=== PATIENT | female | born 1995 | race Caucasian/White ===

== ENCOUNTER 2018-01-19 15:30 | Emergency (ER) | payer OTHER ==
[~2018-01-19] VITALS: Ht 162.6 cm; Wt 117.9 kg
[~2018-01-19 15:30] MED LIST: ANXIETY; BACTRIM DS TAB1 EACH PO; BENTYL 20 MG TA20 M1 PO; BENTYL20 MG PO; CEFDINIR300 MG PO; CIPRO500 M1 PO; CIPRO500 MG PO; CIPROFLOXACIN500 M1 PO; CIPROFLOXACIN500 M3 PO; CORTISPORIN OTI10 M2 OT; DARVOCET-N 1001 EACH PO; FLEXERIL PO; FLOMAX PO; FLOMAX0.4 MG PO; HYDROCODON-ACE1 EA11 PO; HYDROCODON-ACE1 EAC8 PO; HYDROCODONE-AP1 EAC6 PO; HYDROCODONE-APA1 TA1 PO; HYOMAX-DT0.375 MG; IBUPROFEN 800800 M1 PO; LEVSIN0.125 MG PO; MIRALAX255 GM PO; NEURONTIN600 MG PO; NOHOMEMEDICATIONS; NORCO 5-325 TA1 EACH PO; NORFLEX100 MG PO; ONDANSETRON ODT8 MG PO; PAXIL10 MG PO; PERCOCET 5-3251 EACH; PERCOCET 5-3251 EACH PO; PERCOCET PO; PHENAZOPYRIDIN200 M2 PO; PHENERGAN 25 MG25 M1 PO; PROMS25 WY RECTAL; PYRIDIUM200 MG PO; ROBAXIN500 MG PO; TAMSULOSIN HCL0.4 M1 PO; TAMSULOSIN HCL0.4 MG PO; TORADOL 10 MG T10 MG PO; ULTRAM 50MG TAB50 MG PO; ZOFRAN 4 MG ORAL4 M1 DIS; ZOFRAN 4 MG ORAL4 MG PO; ZOFRAN4 MG PO; ZYRTEC10 M1 PO
[2018-01-19 16:28] LABS: URINE BILIRUBIN NEGATIVE (Negative); URINE BLOOD NEGATIVE (Negative); URINE CLARITY CLEAR; URINE COLOR YELLOW; URINE GLUCOSE-RANDOM NEGATIVE (Negative); URINE KETONES NEGATIVE (Negative); URINE LEUKOCYTES NEGATIVE (Negative); URINE NITRITE NEGATIVE (Negative); URINE PROTEIN NEGATIVE (Negative); URINE UROBILINOGEN 0.2 E.U./dl (0.2-1.0)
[2018-01-19 16:58] LABS: ABSOLUTE BASOPHILS 0.1 thou/uL (0.0-0.2); ABSOLUTE EOSINOPHILS 0.1 thou/uL (0.0-0.7); ABSOLUTE LYMPHOCYTES 2.4 thou/uL (0.8-5.3); ABSOLUTE MONOCYTES 0.7 thou/uL (0.0-1.2); BASOPHILS 0.4 %; EOSINOPHILS 0.4 %; HEMATOCRIT 36.7 % (37.0-47.0); HEMOGLOBIN 11.8 gm/dL (12.0-15.0); MCH 25.5 pg (26.0-34.0); MCHC 32.2 g/dL (28.0-37.0); MONOCYTES 4.2 %; MPV 7.5 fl. (7.2-11.1); NUCLEATED RBCS 0 /100WBC; PLATELET COUNT* 477 thou/uL (150-400); RBC 4.64 mil/uL (4.20-5.00); RDW-CV 16.4 % (10.5-14.5); WBC 16.2 thou/uL (4.0-11.0)
[2018-01-19 17:07] LABS: CALCIUM 9.3 mg/dL (8.5-10.1); CREATININE 0.8 mg/dL (0.6-1.3); POTASSIUM 3.9 mmol/L (3.5-5.1)
[2018-01-19 17:20] LABS: ALBUMIN 3.9 g/dL (3.4-5.0); TOTAL BILIRUBIN 0.2 mg/dL (<0.1-1.0); TOTAL PROTEIN 8.3 g/dL (6.4-8.2)
[2018-01-19] MEDS ORDERED: NAPROSYN500 MG PO (19:55)
[2018-01-19] MEDS ORDERED: ONDANSETRON HCL4 M2 PO (19:55)
[2018-01-19] MEDS ORDERED: HYDROCODONE-AP1 EAC6 PO (19:55)
[2018-01-19 21:20] VITALS: BP 154/71
== END 2018-01-19 21:44 | disposition home or self-care (01) ==
LOC: M.ERS 15:30
PROVIDERS: Nurse Practitioner Family
DX: N83.202 Unspecified ovarian cyst, left side (principal); F41.9 Anxiety disorder, unspecified

== ENCOUNTER 2018-01-30 18:16 | Emergency (ER) | payer OTHER ==
[~2018-01-30] VITALS: Ht 162.6 cm; Wt 120.2 kg
[~2018-01-30 18:16] MED LIST changes: +NAPROSYN500 MG PO; +ONDANSETRON HCL4 M2 PO
[2018-01-30 18:33] LABS: URINE BILIRUBIN NEGATIVE (Negative); URINE BLOOD NEGATIVE (Negative); URINE CLARITY CLEAR; URINE COLOR YELLOW; URINE GLUCOSE-RANDOM NEGATIVE (Negative); URINE KETONES NEGATIVE (Negative); URINE LEUKOCYTES-REFLEX NEGATIVE (Negative); URINE NITRITE-REFLEX NEGATIVE (Negative); URINE PROTEIN NEGATIVE (Negative); URINE SPECIFIC GRAVITY 1.025 (1.005-1.030); URINE UROBILINOGEN 0.2 E.U./dl (0.2-1.0)
[2018-01-30 18:52] LABS: ABSOLUTE BASOPHILS 0.1 thou/uL (0.0-0.2); ABSOLUTE EOSINOPHILS 0.3 thou/uL (0.0-0.7); ABSOLUTE LYMPHOCYTES 3.3 thou/uL (0.8-5.3); ABSOLUTE MONOCYTES 0.8 thou/uL (0.0-1.2); ABSOLUTE NEUTROPHILS 8.7 thou/uL (1.6-8.1); BASOPHILS 0.9 %; EOSINOPHILS 2.2 %; HEMATOCRIT 36.5 % (37.0-47.0); HEMOGLOBIN 11.6 gm/dL (12.0-15.0); MCH 25.6 pg (26.0-34.0); MCHC 31.9 g/dL (28.0-37.0); MCV 80.1 fL (80.0-100.0); MONOCYTES 5.9 %; MPV 7.3 fl. (7.2-11.1); NUCLEATED RBCS 0 /100WBC; PLATELET COUNT* 443 thou/uL (150-400); RBC 4.56 mil/uL (4.20-5.00); RDW-CV 16.3 % (10.5-14.5); WBC 13.2 thou/uL (4.0-11.0)
[2018-01-30 19:00] LABS: CALCIUM 9.2 mg/dL (8.5-10.1); CREATININE 0.7 mg/dL (0.6-1.3); POTASSIUM 4.1 mmol/L (3.5-5.1)
[2018-01-30 19:05] LABS: ALBUMIN 4.1 g/dL (3.4-5.0); TOTAL BILIRUBIN 0.2 mg/dL (<0.1-1.0); TOTAL PROTEIN 7.7 g/dL (6.4-8.2)
[2018-01-30] MEDS ORDERED: NAPROSYN500 MG PO (20:39)
[2018-01-30] MEDS ORDERED: HYDROCODONE-AP1 EAC6 PO (20:39)
[2018-01-30] MEDS ORDERED: ZOFRAN ODT4 MG PO (20:39)
[2018-01-30] MEDS ORDERED: PHENERGAN 25 MG25 M1 PO (20:47)
[2018-01-30 21:11] VITALS: BP 149/92
== END 2018-01-30 21:11 | disposition home or self-care (01) ==
LOC: M.ERS 18:16
PROVIDERS: Physician Assistant
DX: R10.32 Left lower quadrant pain (principal); F41.9 Anxiety disorder, unspecified

== ENCOUNTER 2018-03-01 15:40 | Emergency (ER) | payer OTHER ==
[~2018-03-01] VITALS: Ht 162.6 cm; Wt 120.2 kg
[~2018-03-01 15:40] MED LIST changes: +ZOFRAN ODT4 MG PO
[2018-03-01 15:59] LABS: URINE BILIRUBIN NEGATIVE (Negative); URINE BLOOD 3+ (Negative); URINE CLARITY CLOUDY; URINE COLOR YELLOW; URINE GLUCOSE-RANDOM NEGATIVE (Negative); URINE KETONES TRACE (Negative); URINE LEUKOCYTES-REFLEX 1+ (Negative); URINE NITRITE-REFLEX NEGATIVE (Negative); URINE PROTEIN 2+ (Negative); URINE SPECIFIC GRAVITY 1.025 (1.005-1.030); URINE UROBILINOGEN 0.2 E.U./dl (0.2-1.0)
[2018-03-01] MEDS ORDERED: PHENAZOPYRIDIN200 M2 PO (16:02)
[2018-03-01] MEDS ORDERED: HYOSCYAMINE0.125 MG PO (16:02)
[2018-03-01 16:17] LABS: MUCUS 0-3 Light strn/LPF (None Seen); SQUAMOUS 4-10 Moderate /LPF (0-3); URINE RBC >20 Many /HPF (0-2)
[2018-03-01 16:18] LABS: BACTERIA-REFLEX 1-9 Few /HPF (None Seen); CASTS None Seen /LPF (None Seen); CRYSTALS None Seen /LPF (None Seen); URINE WBC-REFLEX 6-15 Few /HPF (0-5)
[2018-03-01 16:24] LABS: ABSOLUTE BASOPHILS 0.1 thou/uL (0.0-0.2); ABSOLUTE EOSINOPHILS 0.4 thou/uL (0.0-0.7); ABSOLUTE LYMPHOCYTES 2.8 thou/uL (0.8-5.3); ABSOLUTE MONOCYTES 0.5 thou/uL (0.0-1.2); ABSOLUTE NEUTROPHILS 8.3 thou/uL (1.6-8.1); BASOPHILS 0.7 %; EOSINOPHILS 3.7 %; HEMATOCRIT 35.1 % (37.0-47.0); HEMOGLOBIN 11.1 gm/dL (12.0-15.0); LYMPHOCYTES 23.4 %; MCH 25.1 pg (26.0-34.0); MCHC 31.7 g/dL (28.0-37.0); MCV 79.2 fL (80.0-100.0); MONOCYTES 3.9 %; MPV 7.7 fl. (7.2-11.1); NUCLEATED RBCS 0 /100WBC; PLATELET COUNT* 400 thou/uL (150-400); POLYS 68.3 %; RBC 4.43 mil/uL (4.20-5.00); RDW-CV 16.1 % (10.5-14.5); WBC 12.1 thou/uL (4.0-11.0)
[2018-03-01 16:32] LABS: CALCIUM 8.7 mg/dL (8.5-10.1); CREATININE 0.7 mg/dL (0.6-1.3); POTASSIUM 3.8 mmol/L (3.5-5.1)
[2018-03-01 16:37] LABS: ALBUMIN 3.5 g/dL (3.4-5.0); TOTAL BILIRUBIN 0.2 mg/dL (<0.1-1.0); TOTAL PROTEIN 7.4 g/dL (6.4-8.2)
[2018-03-01] MEDS ORDERED: COLACE100 MG PO (17:39)
[2018-03-01] MEDS ORDERED: NORCO 5-325 TA1 EAC1 PO (17:39)
[2018-03-01 17:49] VITALS: BP 148/88
== END 2018-03-01 17:50 | disposition home or self-care (01) ==
LOC: M.ERS 15:40
PROVIDERS: Nurse Practitioner Family
DX: T83.84XA Pain due to genitourinary prosthetic devices, implants and grafts, initial encounter (principal); K59.00 Constipation, unspecified; F41.9 Anxiety disorder, unspecified; Z87.442 Personal history of urinary calculi

== ENCOUNTER 2018-04-15 14:16 | Emergency (ER) | payer OTHER ==
[~2018-04-15] VITALS: Ht 157.5 cm; Wt 127.0 kg
[~2018-04-15 14:16] MED LIST changes: +COLACE100 MG PO; +HYOSCYAMINE0.125 MG PO; +NORCO 5-325 TA1 EAC1 PO
[2018-04-15] MEDS ORDERED: HYDROCODONE-AP1 EAC6 PO (15:36)
[2018-04-15] MEDS ORDERED: BACTRIM DS TAB1 EACH PO (15:36)
[2018-04-15] MEDS ORDERED: IBUPROFEN 600600 M1 PO (15:36)
[2018-04-15] MEDS ORDERED: BACTROBAN15 GM TOP (15:36)
[2018-04-15 15:43] VITALS: BP 150/87
== END 2018-04-15 15:43 | disposition home or self-care (01) ==
LOC: M.ERS 14:16
DX: L03.032 Cellulitis of left toe (principal); F41.9 Anxiety disorder, unspecified

== ENCOUNTER 2018-07-06 19:18 | Emergency (ER) | payer OTHER ==
[~2018-07-06] VITALS: Ht 162.6 cm; Wt 124.7 kg
[~2018-07-06 19:18] MED LIST changes: +BACTROBAN15 GM TOP; +IBUPROFEN 600600 M1 PO
[2018-07-06] MEDS ORDERED: NORCO 7.5-3251 EACH (19:32)
[2018-07-06 20:22] LABS: ABSOLUTE BASOPHILS 0.1 thou/uL (0.0-0.2); ABSOLUTE EOSINOPHILS 0.3 thou/uL (0.0-0.7); ABSOLUTE MONOCYTES 0.7 thou/uL (0.0-1.2); ABSOLUTE NEUTROPHILS 10.9 thou/uL (1.6-8.1); BASOPHILS 0.9 %; EOSINOPHILS 1.7 %; HEMATOCRIT 36.6 % (37.0-47.0); HEMOGLOBIN 11.6 gm/dL (12.0-15.0); LYMPHOCYTES 19.9 %; MCH 25.5 pg (26.0-34.0); MCHC 31.9 g/dL (28.0-37.0); MCV 80.2 fL (80.0-100.0); MONOCYTES 4.9 %; MPV 7.8 fl. (7.2-11.1); NUCLEATED RBCS 0 /100WBC; PLATELET COUNT* 429 thou/uL (150-400); POLYS 72.6 %; RBC 4.56 mil/uL (4.20-5.00)
[2018-07-06 20:22] LABS: URINE BILIRUBIN NEGATIVE (Negative); URINE BLOOD 2+ (Negative); URINE CLARITY CLEAR; URINE COLOR YELLOW; URINE GLUCOSE-RANDOM NEGATIVE (Negative); URINE KETONES NEGATIVE (Negative); URINE LEUKOCYTES-REFLEX TRACE (Negative); URINE NITRITE-REFLEX NEGATIVE (Negative); URINE PROTEIN NEGATIVE (Negative); URINE SPECIFIC GRAVITY 1.015 (1.005-1.030); URINE UROBILINOGEN 0.2 E.U./dl (0.2-1.0)
[2018-07-06 20:30] LABS: SQUAMOUS >10 Many /LPF (0-3)
[2018-07-06 20:31] LABS: CASTS None Seen /LPF (None Seen); CRYSTALS None Seen /LPF (None Seen); MUCUS None Seen strn/LPF (None Seen)
[2018-07-06 20:31] LABS: CALCIUM 8.8 mg/dL (8.5-10.1); CREATININE 0.7 mg/dL (0.6-1.3); POTASSIUM 3.6 mmol/L (3.5-5.1)
[2018-07-06 20:32] LABS: URINE WBC-REFLEX 0-5 Rare /HPF (0-5)
[2018-07-06 20:36] LABS: ALBUMIN 3.6 g/dL (3.4-5.0); TOTAL BILIRUBIN 0.2 mg/dL (<0.1-1.0); TOTAL PROTEIN 7.5 g/dL (6.4-8.2)
[2018-07-06] MEDS ORDERED: FLOMAX0.4 MG PO (21:06)
[2018-07-06] MEDS ORDERED: HYDROCODON-ACE1 EAC8 PO (22:01)
[2018-07-06 22:06] VITALS: BP 137/70
== END 2018-07-06 22:08 | disposition home or self-care (01) ==
LOC: M.ERS 19:18
PROVIDERS: Physician Assistant
DX: N20.0 Calculus of kidney (principal); R11.2 Nausea with vomiting, unspecified; F41.9 Anxiety disorder, unspecified; Z98.890 Other specified postprocedural states

== ENCOUNTER 2018-07-07 15:59 | Inpatient (IN) | payer OTHER ==
[~2018-07-07] VITALS: Ht 162.6 cm; Wt 123.5 kg
[~2018-07-07 15:59] MED LIST changes: +NORCO 7.5-3251 EACH
[2018-07-07 16:05] VITALS: BP 172/112
[2018-07-07 16:44] LABS: HEMATOCRIT 38.5 % (37.0-47.0); HEMOGLOBIN 12.1 gm/dL (12.0-15.0); MCH 25.2 pg (26.0-34.0); MCHC 31.4 g/dL (28.0-37.0); MCV 80.3 fL (80.0-100.0); MPV 7.7 fl. (7.2-11.1); NUCLEATED RBCS 0 /100WBC; PLATELET COUNT* 438 thou/uL (150-400); RDW-CV 15.8 % (10.5-14.5); WBC 20.3 thou/uL (4.0-11.0)
[2018-07-07 16:49] LABS: CALCIUM 8.6 mg/dL (8.5-10.1); POTASSIUM 3.9 mmol/L (3.5-5.1)
[2018-07-07 16:53] LABS: ALBUMIN 3.8 g/dL (3.4-5.0); TOTAL BILIRUBIN 0.4 mg/dL (<0.1-1.0); TOTAL PROTEIN 7.8 g/dL (6.4-8.2)
[2018-07-07 17:38] LABS: ABSOLUTE EOSINOPHILS 0.2 thou/uL (0.0-0.7); ABSOLUTE MONOCYTES 0.2 thou/uL (0.0-1.2); ABSOLUTE NEUTROPHILS 17.9 thou/uL (1.6-8.1)
[2018-07-07 17:40] LABS: ANISOCYTOSIS Occasional; PLATELET ESTIMATE INCREASED
[2018-07-07 18:10] VITALS: BP 117/65
[2018-07-07 18:38] VITALS: BP 151/96
--- NOTE | 2018-07-07 19:06 | NUR ---
PATIENT ADMITTED TO ROOM 106 FROM ER. ALERT AND ORIENTED. RATING RIGHT FLANK PAIN AT 7/10. PRN DILAUDID GIVEN FOR PAIN PER ORDERS. IVF RUNNING WO AT THIS TIME PER ORDERS THEN TO INFUSE AT 150MLS/HR. UP AD BOO. REG DIET AND NPO AFTER MIDNIGHT. ORIENTED TO CALL LIGHT. CALL LIGHT WITHIN REACH, WILL CONTINUE TO MONITOR.
[2018-07-08] VITALS (7 sets, daily range): BP systolic 114–151; BP diastolic 62–86
--- NOTE | 2018-07-08 05:42 | NUR ---
ASSESSMENT COMPLETE. PT SLEPT MOST OF THE NIGHT. IV PAIN MEDICATION GIVEN NEEDED. PAIN MEDICATION WERE NOT WORKING AT BEGINING OF SHIFT, DILAUDID CHANGED AND NOW PT TOLERATING PAIN. PT HAS IV FLUIDS INFUSING. DENIES N/V. PT HAS BEEN NPO SINCE MIDNIGHT. PT IS UP AD BOO. STRAINING URING. UROLOGY CONSULT. SEE ASSESSMENT AND VITALS FOR OTHER DETAILS. CALL LIGHT WITHIN REACH, WILL CONTINUE PLAN OF CARE
[2018-07-08 10:03] LABS: HEMATOCRIT 35.7 % (37.0-47.0); HEMOGLOBIN 10.8 gm/dL (12.0-15.0); MCH 24.6 pg (26.0-34.0); MCHC 30.4 g/dL (28.0-37.0); MCV 80.8 fL (80.0-100.0); MPV 7.7 fl. (7.2-11.1); RBC 4.41 mil/uL (4.20-5.00); WBC 15.3 thou/uL (4.0-11.0)
--- NOTE | 2018-07-08 18:12 | NUR ---
PATIENT RESTING IN BED. PATIENT HAD CYSTOSCOPY WITH STENT PLACEMENT THIS AFTERNOON. PATIENT HAS COMPLAINTS OF PAIN9/10, MEDICATION GIVEN. PATIENT IS TOLERATING REGULAR DIET AT THIS TIME. PATIENT IS UP AD BOO IN ROOM. PATIENT DENIES ANY NEEDS AT THIS TIME. WILL CONTINUE TO MONITOR.
[2018-07-09] VITALS: BP 128/53
--- NOTE | 2018-07-09 05:42 | NUR ---
PT AWAKE ALL NIGHT WATCHING TV. UP AD BOO TO BR TO VOID GOOD AMOUNT ORANGE URINE, BLOOD TINGED INITIALLY. RAC IVF INFUSIN PER PUMP. RECEIVING IV PAIN MED Q2 HOURS FOR CO PAIN 8-10 WITH GOOD RESULT BUT SHORT LIVED PT STATES. DOES NOT WANT TO TRY ORAL MEDS, STATES SHE TRIED THEM EARLIER AND THEY DIDNT HELP. EDUCATED ON NEED FOR ORAL MEDS TO CONTROL PAIN AT DISCHARGE. TOLERATING REGULAR DIET WITHOUT DIFFICULTY. ABLE TO USE CALL LITE AND MAKE NEEDS KNOWN.
[2018-07-09 08:00] VITALS: BP 135/79
[2018-07-09] MEDS ORDERED: PERCOCET PO (09:27)
--- NOTE | 2018-07-09 13:00 | NUR ---
MET WITH PT. SHE LIVES WITH HER MOM. SHE IS INDEPENDENT,WORKS, DRIVES. HER [employer] ON HER. NO DME/HH. SHE SHOULD HAVE NO DISCHARGE NEEDS. IS HAVING TROUBLE WITH ORAL PAIN MEDS NOT HELPING HER PAIN. NURSING AWARE.
[2018-07-09 16:54] VITALS: BP 136/79
--- NOTE | 2018-07-09 17:06 | NUR ---
SHIFT NOTE - DISCHARGE PAPERS WRITTEN FOR PT. PT TRANSITIONED TO PO PAIN MEDS. PT STILL HAVING SEVERE ABD/FLANK PAIN 9 OUT OF 10 WITH 2 PERCOCET. SPOKE WITH . ORDERS GIVEN TO ADD 2 OXY IR ALONG WITH THE PERCOCET. WILL CONT TO MONITOR.
--- NOTE | 2018-07-09 18:12 | NUR ---
PAIN REASSESSMENT AFTER PERCOCET 2 TABS AND OXY IR 2 TABS COMPLETE. PT RATING ON A PAIN SCALE AFTER THE PREVIOUS AN 8 (BEFORE MEDS WAS A 9). PT STATED "THE ONLY THING THAT BRINGS MY PAIN TO A ZERO IS IV DILAUDID". SPOKE WITH . ORDERS REC. GIVE LEVSIN AND PYRIDIUM NOW, THEN IF STILL HAVING PAIN THE GIVE B&O SUPP (SEE ORDERS). LEVSIN/PYRIDIUM GIVEN. WILL REASSESS IN 1 HOUR. PT STILL REFUSING DISCHARGE AT THIS TIME D/T PAIN CONTROL ISSUES.
[2018-07-09 20:00] VITALS: BP 133/65
[2018-07-10 04:30] VITALS: BP 142/83
--- NOTE | 2018-07-10 05:24 | NUR ---
AT START OF SHIFT PT TEARFUL, MOM AT BEDSIDE, DISCUSSING DISCHARGE AND PAIN CONTROL MEASURES. PT STATES THE ORAL MEDS ARE NOT CONTROLLING HER PAIN AND SHE CANNOT GO HOME WITH THIS MUCH PAIN, 07/12. REFUSING B&O SUPP. CALL PLACED TO UROLOGIST DR ZHENG. TORADOL ORDERED X1 DOSE AND DR STATES SHE WANTS HOSPITALIST TO MANAGE NARCOTIC PAIN MEDS IF PT REFUSING TO DISCHARGE. DR ZHANG NOTIFIED AND ORDERS RECEIVED FOR STRONGER ORAL MEDS. PT MADE AWARE OF PLAN, AGREEABLE. TORADOL IV AND OXY IR 20MG GIVEN AND PT ABLE TO SLEEP, NOT REQUESTING PAIN MED FOR 4 HOURS. OXYCODONE 20MG GIVEN PO AND PT REQUESTING ADDITIONAL PAIN MED AFTER 2 HOURS. OXY IR GIVEN ALONG WITH LEVSIN AND PYRIDIUM WHICH LASTED 2 HOURS AND PT CALLING AGAIN FOR PAIN MED. SHE STATES ORAL PAIN MEDS ALTERNATED ABLE TO BRING HER PAIN DOWN TO ABOUT A 6 FOR A PERIOD OF TIME. RAC IVF INFUSING PER PUMP. UP AD BOO IN ROOM, VOIDING WITHOUT DIFFICULTY. TOLERATING REGULAR DIET WITHOUT N/V. ANTICIPATING DISCHARGE HOME TODAY WITH PO MEDS. ABLE TO USE CALL LITE AND MAKE NEEDS KNOWN.
[2018-07-10 08:15] VITALS: BP 142/94
[2018-07-10] MEDS ORDERED: IBUPROFEN 400400 M2 PO (09:07)
[2018-07-10] MEDS ORDERED: OXYCODONE HCL10 MG PO (09:07)
[2018-07-10] MEDS ORDERED: NORCO 10-325 T1 EACH PO (09:07)
[2018-07-10 10:58] VITALS: BP 151/86
[2018-07-10 11:09] VITALS: BP 151/86
[2018-07-10] MEDS ORDERED: ONDANSETRON HCL4 M2 PO (11:13)
[2018-07-10] MEDS ORDERED: LEVSIN0.125 MG PO (11:14)
[2018-07-10] MEDS ORDERED: KEFLEX500 M1 PO (11:16)
[2018-07-10] MEDS ORDERED: PHENAZOPYRIDIN200 M2 PO (11:16)
--- NOTE | 2018-07-10 12:29 | OP ---
[address] [address] OPERATIVE REPORT Name: CAROLA PHAN Room: [address] IN [facility].#: [id number] Admission: 07/07/18 Attend Phys: Bonita Charles MD Discharge: Date of : 95 Report #: [id number] THIS REPORT FOR: //name// CC: [facility] physician/PCP Bonita Charles DATE OF SERVICE: 07/08/2018 PREOPERATIVE DIAGNOSIS: Right proximal ureteral stone. POSTOPERATIVE DIAGNOSES: Right proximal ureteral stone as well as right nephrolithiasis. PROCEDURE: Cystourethroscopy, right retrograde pyelogram, right ureteroscopy, laser lithotripsy, basket extraction of stone fragments and right ureteral stent placement (6 x 26). SURGEON: Marisa Diamond M.D. ANESTHESIA: General. ESTIMATED BLOOD LOSS: None. COMPLICATIONS: None. SPECIMEN: Stone. INDICATIONS: The patient is a 23-year-old female well known to Dr. Noyola with a long history of stones. She presents again with a 4-mm right proximal stone. Options were discussed and due to intractable pain and this being her second ER visit, she wishes to undergo intervention. Risks of procedure were discussed including but not limited to infection, bleeding, injury to the urethra, bladder, ureter, need for secondary procedures, stent pain, cardiopulmonary complications. She voiced understanding and wished to proceed. DESCRIPTION OF PROCEDURE: After informed consent was obtained, the patient was taken back to the operating suite and placed supine. After induction of general anesthesia, she was placed in dorsal lithotomy position, genitalia prepped and draped in standard fashion. Rigid cystoscopy was performed. Bladder mucosa appeared normal. There were no abnormalities. Ureteral orifices were orthotopic in position. Retrograde was performed on the right with cone tip catheter. She had a questionable very, very faint subtle filling defect in the proximal ureter. Initially, I did not see this, but she did have some very, very mild right hydronephrosis, so on closer look, this did appear to be a true defect. A sensor wire was threaded up into the kidney. [id number] [id number] OPERATIVE REPORT Name: PHANCAROLA Room: [address] IN [facility].#: [id number] Admission: 07/07/18 Attend Phys: Bonita Charles MD Discharge: Date of : 95 Report #: [id number] ureteroscope to make sure there were no distal fragments and the distal ureter was inspected and this was clear. A second wire was placed and an 09/14 ureteral access sheath was threaded along while the wires, this would only pass to the level of the mid ureter and that was left in place. Flexible scope was advanced up into the mid ureter. In the proximal ureter, there was an edematous narrowed area where the stone had likely been, but there was no stone present and I suspected it had blown back into the kidney with retrograde. This appeared to be mildly strictured, but I was able to advance the scope through. On entrance into the kidney, all calices were inspected and the stone in question was found free floating in the upper pole and appeared to be about 4 mm in length. The holmium laser fiber was used to break this up into small fragments. The rest of the calices were inspected. In the mid pole, she had a stone still attached to the underlying calices, but this was easily knocked off and this was lasered and this was probably about 2 or 3 mm. She also had a tiny stone in the lower pole that was adherent to the zenia, but that was also knocked off and too tiny to even need to be lasered. All the calices were again inspected and no other stones were seen. Any pieces that were significant were basketed with the 0 tip nitinol basket and removed. Once this was all accomplished, the kidney was again all inspected in all calices and there were no significant fragments remaining just dust-like fragments. The scope was backed out under direct vision. There was no injury from the sheath. A retrograde was again performed to delineate the collecting system for stent placement. There was no extravasation. The wire was backloaded through the cystoscope and a 6-Vietnamese x 24 cm double-J stent was threaded over the wire. This appeared to be a little short as I could not get a curled in the renal pelvis. It just kept hooking in the lower pole, so this was externalized at the meatus. Wire was rethreaded and a new 6-Vietnamese x 26-cm double-J stent was threaded over the wire. Good curl was this time seen in the renal pelvis and good curl was seen within the bladder under direct visualization. The bladder was then drained, scope was removed and procedure was concluded. A 5 mL of lidocaine jelly were placed per urethra for local anesthesia and a 60 mg B and O suppository was placed per rectum for postoperative discomfort. She was awoken, extubated and taken to recovery in satisfactory condition. She will be admitted back to the floor and potentially home tonight if her pain is controlled. Would recommend she follow up in clinic in a week for stent removal. <ELECTRONICALLY SIGNED> By: Marisa Diamond MD 07/10/18 1229 1650 [id number] Diamond MD /nt
--- NOTE | 2018-07-10 14:19 | NUR ---
PATIENT DISCHARGED FROM UNIT AT 1345. ALERT AND ORIENTED X 4. VITAL SIGNS STABLE ON ROOM AIR. IV DISCONTINUED. DENIES NAUSEA. PAIN BEING MANAGED WITH PO PAIN MEDICATION. DISCHARGE INSTRUCTIONS, MEDICATION INFORMATION, AND SCRIPTS GIVEN TO PATIENT. LEFT WITH ALL BELONGINGS. PATIENT LEFT WITH STEP DAD VIA CAR.
[2018-07-14 13:09] LABS: STONE CA OXALATE MONOHYDRATE 85 % (()); STONE CALCIUM PHOSPHATE 10 % (()); STONE COLOR Brown (()); STONE COMMENT Note: (()); STONE WEIGHT 6.3 mg (())
== END 2018-07-10 13:45 | disposition home or self-care (01) | DRG 669 ==
LOC: M.ERS 15:59 → M.TBA-ER 17:49 → M.ORTHSURG 17:49
PROVIDERS: Nurse Practitioner Family; Urology; ADMIT Internal Medicine
PROC: 0TC68ZZ Extirpation of Matter from Right Ureter, Via Natural or Artificial Opening Endoscopic (ICD-10-PCS; principal; 2018-07-10)
PROC: 0T768DZ Dilation of Right Ureter with Intraluminal Device, Via Natural or Artificial Opening Endoscopic (ICD-10-PCS; principal; 2018-07-10)
PROC: BT1D1ZZ Fluoroscopy of Right Kidney, Ureter and Bladder using Low Osmolar Contrast (ICD-10-PCS; principal; 2018-07-10)
DX: N20.2 Calculus of kidney with calculus of ureter (principal); N30.01 Acute cystitis with hematuria; F41.9 Anxiety disorder, unspecified; Z79.899 Other long term (current) drug therapy; Z87.442 Personal history of urinary calculi; Z82.49 Family history of ischemic heart disease and other diseases of the circulatory system; Z83.3 Family history of diabetes mellitus

== ENCOUNTER 2018-10-11 13:57 | Emergency (ER) | payer OTHER ==
[~2018-10-11] VITALS: Ht 162.6 cm; Wt 117.9 kg
[~2018-10-11 13:57] MED LIST changes: +IBUPROFEN 400400 M2 PO; +KEFLEX500 M1 PO; +NORCO 10-325 T1 EACH PO; +OXYCODONE HCL10 MG PO
[2018-10-11 14:27] LABS: URINE BILIRUBIN NEGATIVE (Negative); URINE BLOOD 1+ (Negative); URINE CLARITY CLEAR; URINE COLOR YELLOW; URINE GLUCOSE-RANDOM NEGATIVE (Negative); URINE KETONES NEGATIVE (Negative); URINE LEUKOCYTES-REFLEX NEGATIVE (Negative); URINE NITRITE-REFLEX NEGATIVE (Negative); URINE PROTEIN NEGATIVE (Negative); URINE SPECIFIC GRAVITY 1.025 (1.005-1.030); URINE UROBILINOGEN 0.2 E.U./dl (0.2-1.0)
[2018-10-11 14:33] LABS: SQUAMOUS 0-3 Few /LPF (0-3); URINE WBC-REFLEX 0-5 Rare /HPF (0-5)
[2018-10-11 14:34] LABS: BACTERIA-REFLEX None Seen /HPF (None Seen); CASTS None Seen /LPF (None Seen); CRYSTALS None Seen /LPF (None Seen); MUCUS None Seen strn/LPF (None Seen); URINE RBC 3-10 Few /HPF (0-2)
[2018-10-11 14:38] LABS: ABSOLUTE BASOPHILS 0.1 thou/uL (0.0-0.2); ABSOLUTE EOSINOPHILS 0.1 thou/uL (0.0-0.7); ABSOLUTE LYMPHOCYTES 2.4 thou/uL (0.8-5.3); ABSOLUTE MONOCYTES 0.8 thou/uL (0.0-1.2); ABSOLUTE NEUTROPHILS 11.1 thou/uL (1.6-8.1); BASOPHILS 0.7 %; EOSINOPHILS 0.5 %; HEMATOCRIT 37.5 % (37.0-47.0); HEMOGLOBIN 12.2 gm/dL (12.0-15.0); LYMPHOCYTES 16.4 %; MCH 25.9 pg (26.0-34.0); MCHC 32.5 g/dL (28.0-37.0); MCV 79.6 fL (80.0-100.0); MONOCYTES 5.5 %; MPV 7.6 fl. (7.2-11.1); NUCLEATED RBCS 0 /100WBC; PLATELET COUNT* 460 thou/uL (150-400); POLYS 76.9 %; RBC 4.71 mil/uL (4.20-5.00); RDW-CV 16.2 % (10.5-14.5); WBC 14.5 thou/uL (4.0-11.0)
[2018-10-11 14:52] LABS: CALCIUM 9.4 mg/dL (8.5-10.1); CREATININE 0.7 mg/dL (0.6-1.3); POTASSIUM 3.6 mmol/L (3.5-5.1)
[2018-10-11 14:57] LABS: ALBUMIN 3.8 g/dL (3.4-5.0); TOTAL BILIRUBIN 0.3 mg/dL (<0.1-1.0); TOTAL PROTEIN 7.9 g/dL (6.4-8.2)
[2018-10-11] MEDS ORDERED: ZOFRAN4 MG PO (16:15)
[2018-10-11] MEDS ORDERED: ACETAMINOPHEN-1 EAC1 PO (16:15)
[2018-10-11 16:32] VITALS: BP 138/79
== END 2018-10-11 16:33 | disposition home or self-care (01) ==
LOC: M.ERS 13:57
PROVIDERS: Nurse Practitioner Family
DX: N23 Unspecified renal colic (principal); R11.2 Nausea with vomiting, unspecified; F41.9 Anxiety disorder, unspecified; K58.9 Irritable bowel syndrome, unspecified; Z87.442 Personal history of urinary calculi; Z98.890 Other specified postprocedural states

== ENCOUNTER 2018-10-30 18:01 | Inpatient (IN) | payer OTHER ==
[~2018-10-30] VITALS: Ht 162.6 cm; Wt 122.5 kg
--- NOTE | ~2018-10-30 | OP ---
[address] [address] OPERATIVE REPORT Name: CAROLA PHAN Room: [address] IN .R.#: [id number] Admission: 10/30/18 Attend Phys: Bill Medeiros, Discharge: Date of : 95 Report #: [id number] THIS REPORT FOR: //name// CC: Jaysno Medeiros SURGEON: Anthony Godoy MD PREOPERATIVE DIAGNOSIS: Left ureteral stone with recalcitrant pain. POSTOPERATIVE DIAGNOSIS: Left ureteral stone with recalcitrant pain. PROCEDURE: Panendoscopy and cystoscopy, left retrograde pyelogram, left ureteroscopy, holmium laser of stone, extraction of stone and double-J stent. COMPLICATIONS: No complications. INDICATIONS: This is a 23-year-old white female with multiple stone procedures in the past that she presents now with severe left flank pain. Cannot get comfortable except with IV Dilaudid. She was given options, wished to have ureteroscopy. She understands the risks of bleeding, infection, another procedure, cardiovascular and pulmonary complications and wished to proceed. DESCRIPTION OF PROCEDURE: Informed consent was obtained. The patient was prepped and draped in dorsal lithotomy position and given preoperative antibiotics. Cystoscopy was carried out. No abnormalities seen in the bladder. Left retrograde pyelogram was performed showing a tight stone at the proximal ureter. It was difficult to get contrast by, but I did get a little contrast by which kind of pushed the stone in retrograde fashion. A sensor wire and ZIPwire were used as safety wires. A ureteral 09/14 ureteral access sheath was placed very easily and then the ureteroscopy was carried out and there was one stone that was only about 2 mm, another stone that was about 6 mm and I was able to break both stones up into tiny little fragments, extracted the bulk of all the biggest fragments. There were some small dust-like particles that were still left too small to grasp in the wire basket. A 4.8 x 28 stent was then placed showing good curl in the kidney and good curl in the bladder. The patient tolerated this well and was taken to recovery room in good condition. It had been noted the ureter was inspected on the way out with ureteroscope. No evidence of any trauma to the ureter. By: 1300 [id number] Godoy MD /lenny
[~2018-10-30 18:01] MED LIST changes: +ACETAMINOPHEN-1 EAC1 PO
[2018-10-30 18:09] VITALS: BP 152/102
[2018-10-30 18:35] LABS: ABSOLUTE BASOPHILS 0.1 thou/uL (0.0-0.2); ABSOLUTE EOSINOPHILS 0.1 thou/uL (0.0-0.7); ABSOLUTE LYMPHOCYTES 2.9 thou/uL (0.8-5.3); ABSOLUTE MONOCYTES 0.7 thou/uL (0.0-1.2); ABSOLUTE NEUTROPHILS 10.7 thou/uL (1.6-8.1); BASOPHILS 0.5 %; EOSINOPHILS 0.8 %; HEMATOCRIT 36.6 % (37.0-47.0); HEMOGLOBIN 11.9 gm/dL (12.0-15.0); LYMPHOCYTES 19.9 %; MCH 26.2 pg (26.0-34.0); MCHC 32.5 g/dL (28.0-37.0); MCV 80.8 fL (80.0-100.0); MONOCYTES 4.8 %; MPV 7.4 fl. (7.2-11.1); NUCLEATED RBCS 0 /100WBC; PLATELET COUNT* 435 thou/uL (150-400); RBC 4.53 mil/uL (4.20-5.00); RDW-CV 15.7 % (10.5-14.5); WBC 14.4 thou/uL (4.0-11.0)
[2018-10-30 18:45] LABS: CALCIUM 8.6 mg/dL (8.5-10.1); POTASSIUM 3.8 mmol/L (3.5-5.1)
[2018-10-30 18:48] LABS: ALBUMIN 4.1 g/dL (3.4-5.0); TOTAL BILIRUBIN 0.4 mg/dL (<0.1-1.0); TOTAL PROTEIN 7.4 g/dL (6.4-8.2)
[2018-10-30 20:02] LABS: URINE BILIRUBIN NEGATIVE (Negative); URINE BLOOD NEGATIVE (Negative); URINE CLARITY CLEAR; URINE COLOR YELLOW; URINE GLUCOSE-RANDOM NEGATIVE (Negative); URINE KETONES NEGATIVE (Negative); URINE LEUKOCYTES-REFLEX NEGATIVE (Negative); URINE NITRITE-REFLEX NEGATIVE (Negative); URINE PROTEIN NEGATIVE (Negative); URINE SPECIFIC GRAVITY >= 1.030 (1.005-1.030); URINE UROBILINOGEN 0.2 E.U./dl (0.2-1.0)
[2018-10-30 21:50] VITALS: BP 137/80
[2018-10-30 21:55] VITALS: BP 142/92
[2018-10-31 07:55] VITALS: BP 144/81
[2018-10-31 16:00] VITALS: BP 113/80
[2018-11-01 04:00] VITALS: BP 105/61
[2018-11-01 07:55] VITALS: BP 123/69
[2018-11-01] MEDS ORDERED: PERCOCET PO (12:48)
[2018-11-01 12:50] VITALS: BP 123/69
[2018-11-01] MEDS ORDERED: LEVSIN0.125 MG PO (12:50)
== END 2018-11-01 13:40 | disposition home or self-care (01) | DRG 661 ==
LOC: M.ERS 18:01 → M.3W 21:06 → M.TBA-ER 21:06 → M.3W 22:08
PROVIDERS: Physician Assistant; ADMIT Family Medicine
PROC: 0TC78ZZ Extirpation of Matter from Left Ureter, Via Natural or Artificial Opening Endoscopic (ICD-10-PCS; principal; 2018-10-31)
PROC: 0T778DZ Dilation of Left Ureter with Intraluminal Device, Via Natural or Artificial Opening Endoscopic (ICD-10-PCS; principal; 2018-10-31)
PROC: BT1F1ZZ Fluoroscopy of Left Kidney, Ureter and Bladder using Low Osmolar Contrast (ICD-10-PCS; principal; 2018-10-31)
DX: N20.1 Calculus of ureter (principal); K58.9 Irritable bowel syndrome, unspecified; F41.9 Anxiety disorder, unspecified; Z87.442 Personal history of urinary calculi; Z82.49 Family history of ischemic heart disease and other diseases of the circulatory system; Z83.3 Family history of diabetes mellitus

== ENCOUNTER 2019-03-27 16:10 | Emergency (ER) | payer OTHER ==
[~2019-03-27] VITALS: Ht 162.6 cm; Wt 122.5 kg
[2019-03-27 16:17] VITALS: BP 163/94
[2019-03-27] MEDS ORDERED: FLEXERIL PO (16:19)
[2019-03-27] MEDS ORDERED: NORCO 5-325 TA1 EACH PO (16:31)
[2019-03-27] MEDS ORDERED: IBUPROFEN 800800 M1 PO (16:32)
[2019-03-27] MEDS ORDERED: ZANAFLEX4 MG PO (16:32)
== END 2019-03-27 16:40 | disposition home or self-care (01) ==
LOC: M.ERS 16:10
DX: M54.6 Pain in thoracic spine (principal); G89.29 Other chronic pain; R00.0 Tachycardia, unspecified; K58.9 Irritable bowel syndrome, unspecified; F41.9 Anxiety disorder, unspecified; E66.9 Obesity, unspecified; Z68.42 Body mass index [BMI] 45.0-49.9, adult; Z87.442 Personal history of urinary calculi; Z90.89 Acquired absence of other organs

== ENCOUNTER 2019-05-26 15:48 | Emergency (ER) | payer OTHER ==
[~2019-05-26] VITALS: Ht 162.6 cm; Wt 122.5 kg
[~2019-05-26 15:48] MED LIST changes: +ZANAFLEX4 MG PO
[2019-05-26] MEDS ORDERED: NORCO 5-325 TA1 EAC1 PO (16:46)
[2019-05-26 16:57] VITALS: BP 166/88
== END 2019-05-26 16:59 | disposition home or self-care (01) ==
LOC: M.ERS 15:48
DX: M54.6 Pain in thoracic spine (principal); M25.511 Pain in right shoulder; F10.10 Alcohol abuse, uncomplicated; F41.9 Anxiety disorder, unspecified; K58.9 Irritable bowel syndrome, unspecified; Z90.89 Acquired absence of other organs; Z87.442 Personal history of urinary calculi; Z79.899 Other long term (current) drug therapy

== ENCOUNTER 2019-11-27 08:07 | Inpatient (IN) | payer OTHER ==
[~2019-11-27] VITALS: Ht 162.6 cm; Wt 115.7 kg
[2019-11-27 08:17] VITALS: BP 139/89
[2019-11-27 08:27] LABS: URINE BILIRUBIN NEGATIVE (Negative); URINE BLOOD 3+ (Negative); URINE CLARITY CLEAR; URINE COLOR STRAW; URINE GLUCOSE-RANDOM NEGATIVE (Negative); URINE KETONES NEGATIVE (Negative); URINE LEUKOCYTES-REFLEX NEGATIVE (Negative); URINE NITRITE-REFLEX NEGATIVE (Negative); URINE PROTEIN NEGATIVE (Negative); URINE UROBILINOGEN 0.2 E.U./dl (0.2-1.0)
[2019-11-27 08:33] LABS: SQUAMOUS 0-3 Few /LPF (0-3); URINE RBC >20 Many /HPF (0-2); URINE WBC-REFLEX 0-5 Rare /HPF (0-5)
[2019-11-27 08:34] LABS: BACTERIA-REFLEX 1-9 Few /HPF (None Seen); CASTS None Seen /LPF (None Seen); MUCUS 0-3 Light strn/LPF (None Seen)
[2019-11-27 08:35] LABS: CRYSTALS None Seen /LPF (None Seen)
[2019-11-27 08:38] LABS: ABSOLUTE BASOPHILS 0.1 thou/uL (0.0-0.2); ABSOLUTE EOSINOPHILS 0.1 thou/uL (0.0-0.7); ABSOLUTE LYMPHOCYTES 2.8 thou/uL (0.8-5.3); ABSOLUTE MONOCYTES 0.6 thou/uL (0.0-1.2); ABSOLUTE NEUTROPHILS 9.4 thou/uL (1.6-8.1); BASOPHILS 0.6 %; EOSINOPHILS 0.7 %; HEMATOCRIT 37.9 % (37.0-47.0); HEMOGLOBIN 12.6 gm/dL (12.0-15.0); LYMPHOCYTES 21.8 %; MCH 27.4 pg (26.0-34.0); MCHC 33.2 g/dL (28.0-37.0); MCV 82.4 fL (80.0-100.0); MONOCYTES 4.8 %; MPV 7.8 fl. (7.2-11.1); NUCLEATED RBCS 0 /100WBC; PLATELET COUNT* 414 thou/uL (150-400); POLYS 72.1 %; RDW-CV 14.7 % (10.5-14.5)
[2019-11-27 08:48] LABS: CALCIUM 8.6 mg/dL (8.5-10.1); CREATININE 0.7 mg/dL (0.6-1.3); POTASSIUM 3.9 mmol/L (3.5-5.1)
[2019-11-27 08:52] LABS: ALBUMIN 3.7 g/dL (3.4-5.0); TOTAL BILIRUBIN 0.3 mg/dL (<0.1-1.0); TOTAL PROTEIN 7.6 g/dL (6.4-8.2)
[2019-11-27 15:22] VITALS: BP 136/73
[2019-11-27 16:23] VITALS: BP 135/73
[2019-11-27 21:35] VITALS: BP 139/86
[2019-11-28 04:36] LABS: ABSOLUTE BASOPHILS 0.1 thou/uL (0.0-0.2); ABSOLUTE EOSINOPHILS 0.1 thou/uL (0.0-0.7); ABSOLUTE LYMPHOCYTES 2.9 thou/uL (0.8-5.3); ABSOLUTE MONOCYTES 0.6 thou/uL (0.0-1.2); ABSOLUTE NEUTROPHILS 6.9 thou/uL (1.6-8.1); BASOPHILS 0.7 %; EOSINOPHILS 1.3 %; HEMATOCRIT 34.3 % (37.0-47.0); HEMOGLOBIN 11.3 gm/dL (12.0-15.0); LYMPHOCYTES 26.9 %; MCH 27.7 pg (26.0-34.0); MONOCYTES 5.7 %; MPV 8.2 fl. (7.2-11.1); NUCLEATED RBCS 0 /100WBC; PLATELET COUNT* 349 thou/uL (150-400); POLYS 65.4 %; RBC 4.08 mil/uL (4.20-5.00); RDW-CV 14.7 % (10.5-14.5); WBC 10.6 thou/uL (4.0-11.0)
[2019-11-28 04:39] LABS: CALCIUM 7.8 mg/dL (8.5-10.1); CREATININE 0.7 mg/dL (0.6-1.3); POTASSIUM 3.8 mmol/L (3.5-5.1)
[2019-11-28 07:10] VITALS: BP 138/87; BP 139/86
[2019-11-28 08:50] VITALS: BP 139/86
--- NOTE | 2019-11-28 12:29 | OP ---
[address] [address] OPERATIVE REPORT Name: CAROLA PHAN Room: [address] IN [facility].#: [id number] Admission: 11/27/19 Attend Phys: Ching Sam Discharge: Date of : 95 Report #: [id number] THIS REPORT FOR: //name// CC: Jayson Haque DATE OF SERVICE: 11/28/2019 PREOPERATIVE DIAGNOSIS: Left renal calculi and flank pain. POSTOPERATIVE DIAGNOSIS: Left renal calculi and flank pain. PROCEDURE: Cystoscopy, left ureteral pyeloscopy, laser lithotripsy, stone extraction, stent placement. SURGEON: Man Lerma MD ANESTHESIA: General. ESTIMATED BLOOD LOSS: None. DRAINS: A 6 x 28 left ureteral stent. SPECIMENS: Stone fragments. COMPLICATIONS: None. INDICATIONS: This is a 24-year-old female with recurrent stone disease, admitted with left flank pain and CT findings of left renal pelvic stones, the largest of which is over a centimeter in diameter. Options for management were discussed and she has elected to undergo cystoscopy with left retrograde pyelogram, left ureteral pyeloscopy, laser stone manipulation and stent placement. Risks of procedure were explained including but not limited to bleeding, infection, anesthesia, cardiopulmonary and vascular events, injuries to urethra, bladder, ureter, and kidney, possible development of strictures, possible need for multiple stone procedures, discomfort and irritative symptoms with stent. We also discussed the possibility of stent complications and the need for timely followup regarding any stent left in place. She voices clear understanding of all this and wants to proceed. DESCRIPTION OF PROCEDURE: The patient was on perioperative IV Rocephin. After induction of general anesthesia, she was positioned, prepped and draped in the lithotomy position. Cystourethroscopy was performed after a timeout procedure. The urethra and bladder were normal on systematic examination. The ureteral orifices were orthotopic. No blood was seen from either. There were no stones or lesions in the bladder. Fluoroscopic interrogation [place] [address] OPERATIVE REPORT Name: CAROLA PHAN Room: [address] IN [facility].#: [id number] Admission: 11/27/19 Attend Phys: Ching Sam Discharge: Date of : 95 Report #: [id number] in the region of the left renal pelvis/ureteropelvic junction. A 5-Taiwanese ureteral catheter was used to perform a left retrograde pyelogram. This reveals a normal course and caliber of the ureter with small artifactual filling defects due to air bubbles. Filling defects from stones are noted in the region of the ureteropelvic junction and renal pelvis. Fluoroscopic guidance was used to place two sensor wires into the left renal pelvis. Scope was removed leaving the wires in place. An 11-Taiwanese obturator was passed over the second wire with fluoroscopic guidance and passes easily to the level of the ureteropelvic junction. This was then passed in tandem with a 13-Taiwanese x 28 cm ureteral access sheath. Again, this was done with fluoroscopic guidance and passes easily to the level of the ureteropelvic junction. The obturator and wire were removed leaving the sheath in place with a safety wire alongside. Flexible ureteroscope was advanced per the sheath and into the renal pelvis where multiple stones were encountered. These were engaged with a 272 micron holmium laser fiber and laser lithotripsy was performed. Fragments were extracted with a 0 tip basket. Care was taken to avoid injury to the surrounding tissues and wire. Process of laser energy and basket extraction was continued until all visible fragments in the renal pelvis and calices were too small to entrap with a basket and thus appeared passable. Renal pelvis and calices were examined periodically throughout and at the end of the procedure. There were no significant residual fragments seen. The wire was noted in good position in the upper pole. Scope was withdrawn to ureteropelvic junction and aside from edema there, there are no stones or other abnormalities. The sheath was withdrawn after which the scope was withdrawn with visual guidance to examine the ureter. The ureter is otherwise unremarkable with no remaining stone fragments. The wire was then loaded onto the cystoscope and used for placement of a 6 x 28 left ureteral stent with good position confirmed in the renal pelvis fluoroscopically and in the bladder visually. Drainage from the stent was clear. The patient tolerated the procedure well and was taken to the recovery room in stable condition. Plan will be to leave a stent in place for approximately 2 weeks and then remove it in the office if a followup radiograph does not reveal any significant residual fragments. <ELECTRONICALLY SIGNED> By: Man Lerma MD 11/28/19 1229 1058 [id number] Lerma MD /nt
[2019-11-28 17:00] VITALS: BP 141/83
[2019-11-28 20:16] VITALS: BP 138/80
[2019-11-29] VITALS: BP 150/93
[2019-11-29 04:00] VITALS: BP 133/78
[2019-11-29 07:05] VITALS: BP 103/61
[2019-11-29 17:13] VITALS: BP 173/91
[2019-11-29 21:13] VITALS: BP 138/66
[2019-11-30 06:53] LABS: HEMATOCRIT 39.8 % (37.0-47.0); HEMOGLOBIN 13.1 gm/dL (12.0-15.0); MCH 27.7 pg (26.0-34.0); MCHC 32.9 g/dL (28.0-37.0); MCV 84.3 fL (80.0-100.0); MPV 8.6 fl. (7.2-11.1); RBC 4.72 mil/uL (4.20-5.00); RDW-CV 15.1 % (10.5-14.5); WBC 12.1 thou/uL (4.0-11.0)
[2019-11-30 07:12] LABS: CALCIUM 8.7 mg/dL (8.5-10.1); CREATININE 0.6 mg/dL (0.6-1.3); POTASSIUM 3.7 mmol/L (3.5-5.1)
[2019-11-30 07:20] VITALS: BP 135/66
[2019-11-30 16:41] VITALS: BP 139/80
[2019-11-30 16:42] VITALS: BP 95/51
[2019-11-30 21:53] VITALS: BP 138/83
[2019-12-01 04:02] LABS: ABSOLUTE BASOPHILS 0.1 thou/uL (0.0-0.2); ABSOLUTE EOSINOPHILS 0.2 thou/uL (0.0-0.7); ABSOLUTE LYMPHOCYTES 3.4 thou/uL (0.8-5.3); ABSOLUTE MONOCYTES 0.6 thou/uL (0.0-1.2); ABSOLUTE NEUTROPHILS 6.8 thou/uL (1.6-8.1); BASOPHILS 0.8 %; HEMATOCRIT 33.8 % (37.0-47.0); HEMOGLOBIN 11.2 gm/dL (12.0-15.0); LYMPHOCYTES 30.7 %; MCH 27.4 pg (26.0-34.0); MCHC 33.1 g/dL (28.0-37.0); MCV 82.8 fL (80.0-100.0); MONOCYTES 5.5 %; MPV 7.8 fl. (7.2-11.1); NUCLEATED RBCS 0 /100WBC; PLATELET COUNT* 341 thou/uL (150-400); RBC 4.08 mil/uL (4.20-5.00); RDW-CV 14.8 % (10.5-14.5); WBC 11.2 thou/uL (4.0-11.0)
[2019-12-01 04:37] LABS: CALCIUM 8.3 mg/dL (8.5-10.1); CREATININE 0.7 mg/dL (0.6-1.3); POTASSIUM 3.9 mmol/L (3.5-5.1)
[2019-12-01 08:20] VITALS: BP 146/76
[2019-12-01] MEDS ORDERED: LEVSIN0.125 MG SUBLING (10:47)
[2019-12-01] MEDS ORDERED: IBUPROFEN 800800 M1 PO (10:47)
[2019-12-01] MEDS ORDERED: CIPRO500 MG PO (10:47)
[2019-12-01] MEDS ORDERED: OXYBUTYNIN 5 MG5 M2 PO (10:47)
[2019-12-01] MEDS ORDERED: NEURONTIN 300300 M1 PO (10:47)
[2019-12-01] MEDS ORDERED: OXYCODONE HCL15 MG PO (10:47)
[2019-12-01] MEDS ORDERED: FLOMAX0.4 MG PO (10:47)
[2019-12-01] MEDS ORDERED: MASOPHEN500 MG PO (10:47)
[2019-12-01 11:08] VITALS: BP 146/76
[2019-12-01] MEDS ORDERED: MIRALAX119 GM PO (11:21)
[2019-12-01] MEDS ORDERED: DULCOLAX STOOL100 M1 PO (11:21)
[2019-12-01] MEDS ORDERED: FIBERCON625 M1 PO (11:21)
== END 2019-12-01 12:30 | disposition home or self-care (01) | DRG 660 ==
LOC: M.ERS 08:07 → M.TBA-ER 09:18 → M.ORTHSURG 09:18
PROVIDERS: Family Medicine; ADMIT Internal Medicine
PROC: BT1F1ZZ Fluoroscopy of Left Kidney, Ureter and Bladder using Low Osmolar Contrast (ICD-10-PCS; principal; 2019-11-28)
PROC: 0T778DZ Dilation of Left Ureter with Intraluminal Device, Via Natural or Artificial Opening Endoscopic (ICD-10-PCS; principal; 2019-11-28)
PROC: 0TC78ZZ Extirpation of Matter from Left Ureter, Via Natural or Artificial Opening Endoscopic (ICD-10-PCS; 2019-11-28)
DX: N20.0 Calculus of kidney (principal); R65.10 Systemic inflammatory response syndrome (SIRS) of non-infectious origin without acute organ dysfunction; Z68.41 Body mass index [BMI] 40.0-44.9, adult; N39.0 Urinary tract infection, site not specified; E66.01 Morbid (severe) obesity due to excess calories; K58.9 Irritable bowel syndrome, unspecified; F41.9 Anxiety disorder, unspecified; Z79.899 Other long term (current) drug therapy; Z91.041 Radiographic dye allergy status; Z72.89 Other problems related to lifestyle; Z82.49 Family history of ischemic heart disease and other diseases of the circulatory system; Z83.3 Family history of diabetes mellitus

== ENCOUNTER 2019-12-13 09:11 | Emergency (ER) | payer OTHER ==
[~2019-12-13] VITALS: Ht 162.6 cm; Wt 115.7 kg
[~2019-12-13 09:11] MED LIST changes: +DULCOLAX STOOL100 M1 PO; +FIBERCON625 M1 PO; +LEVSIN0.125 MG SUBLING; +MASOPHEN500 MG PO; +MIRALAX119 GM PO; +NEURONTIN 300300 M1 PO; +OXYBUTYNIN 5 MG5 M2 PO; +OXYCODONE HCL15 MG PO
[2019-12-13 09:50] LABS: ABSOLUTE EOSINOPHILS 0.1 thou/uL (0.0-0.7); ABSOLUTE LYMPHOCYTES 1.5 thou/uL (0.8-5.3); ABSOLUTE MONOCYTES 0.5 thou/uL (0.0-1.2); ABSOLUTE NEUTROPHILS 6.8 thou/uL (1.6-8.1); BASOPHILS 0.4 %; EOSINOPHILS 1.4 %; HEMATOCRIT 38.7 % (37.0-47.0); HEMOGLOBIN 12.7 gm/dL (12.0-15.0); MCH 27.3 pg (26.0-34.0); MCHC 32.9 g/dL (28.0-37.0); MCV 83.1 fL (80.0-100.0); MONOCYTES 5.7 %; MPV 7.8 fl. (7.2-11.1); NUCLEATED RBCS 0 /100WBC; PLATELET COUNT* 423 thou/uL (150-400); POLYS 75.5 %; RBC 4.66 mil/uL (4.20-5.00); RDW-CV 15.2 % (10.5-14.5)
[2019-12-13 10:00] LABS: CREATININE 0.7 mg/dL (0.6-1.3); POTASSIUM 3.6 mmol/L (3.5-5.1)
[2019-12-13 11:43] LABS: URINE BILIRUBIN 0.2 (Negative); URINE BLOOD 3+ (Negative); URINE CLARITY CLOUDY; URINE COLOR RED; URINE GLUCOSE-RANDOM NEGATIVE (Negative); URINE KETONES NEGATIVE (Negative); URINE NITRITE-REFLEX NEGATIVE (Negative); URINE PROTEIN 2+ (Negative)
[2019-12-13 11:44] LABS: URINE LEUKOCYTES-REFLEX TRACE (Negative); URINE UROBILINOGEN 0.2 E.U./dl (0.2-1.0)
[2019-12-13 11:55] LABS: SQUAMOUS 0-3 Few /LPF (0-3); URINE RBC >20 Many /HPF (0-2); URINE WBC-REFLEX 0-5 Rare /HPF (0-5)
[2019-12-13 11:56] LABS: BACTERIA-REFLEX 1-9 Few /HPF (None Seen); CASTS None Seen /LPF (None Seen); CRYSTALS None Seen /LPF (None Seen)
[2019-12-13] MEDS ORDERED: MOBIC15 MG PO (15:13)
[2019-12-13] MEDS ORDERED: OXYCODONE HCL 55 MG PO ×2 (15:13→15:45)
[2019-12-13 15:41] VITALS: BP 134/79
== END 2019-12-13 15:41 | disposition home or self-care (01) ==
LOC: M.ERS 09:11
PROVIDERS: Personal Emergency Response Attendant
DX: N23 Unspecified renal colic (principal); R11.2 Nausea with vomiting, unspecified; F41.9 Anxiety disorder, unspecified; Z90.89 Acquired absence of other organs; Z87.442 Personal history of urinary calculi; Z91.041 Radiographic dye allergy status; Z88.8 Allergy status to other drugs, medicaments and biological substances

== ENCOUNTER 2020-01-23 11:56 | Emergency (ER) | payer OTHER ==
[~2020-01-23] VITALS: Ht 162.6 cm; Wt 115.7 kg
[~2020-01-23 11:56] MED LIST changes: +MOBIC15 MG PO; +OXYCODONE HCL 55 MG PO
[2020-01-23 12:00] VITALS: BP 158/104
[2020-01-23] MEDS ORDERED: NORCO 5-325 TA1 EAC1 PO (12:43)
[2020-01-23] MEDS ORDERED: IBUPROFEN 800800 M1 PO (12:43)
[2020-01-23] MEDS ORDERED: PENICILLIN V P500 MG PO (12:43)
== END 2020-01-23 12:54 | disposition home or self-care (01) ==
LOC: M.ERS 11:56
DX: K08.89 Other specified disorders of teeth and supporting structures (principal); Z87.442 Personal history of urinary calculi; Z90.89 Acquired absence of other organs; Z91.041 Radiographic dye allergy status; Z88.8 Allergy status to other drugs, medicaments and biological substances

== ENCOUNTER 2020-01-26 09:35 | Emergency (ER) | payer OTHER ==
[~2020-01-26] VITALS: Ht 162.6 cm; Wt 115.7 kg
[~2020-01-26 09:35] MED LIST changes: +PENICILLIN V P500 MG PO
[2020-01-26] MEDS ORDERED: IBUPROFEN 800800 MG PO (10:13)
[2020-01-26] MEDS ORDERED: ULTRAM 50MG TAB50 MG PO (10:13)
[2020-01-26] MEDS ORDERED: AUGMENTIN 500-1 EACH PO (10:13)
[2020-01-26 10:20] VITALS: BP 146/76
== END 2020-01-26 10:21 | disposition home or self-care (01) ==
LOC: M.ERS 09:35
DX: K08.89 Other specified disorders of teeth and supporting structures (principal); L53.8 Other specified erythematous conditions; R22.0 Localized swelling, mass and lump, head; K58.9 Irritable bowel syndrome, unspecified; Z91.041 Radiographic dye allergy status; Z88.8 Allergy status to other drugs, medicaments and biological substances; Z87.442 Personal history of urinary calculi; Z90.89 Acquired absence of other organs

== ENCOUNTER 2020-04-28 20:56 | Emergency (ER) | payer OTHER ==
[~2020-04-28] VITALS: Ht 162.6 cm; Wt 115.7 kg
[~2020-04-28 20:56] MED LIST changes: +AUGMENTIN 500-1 EACH PO; +IBUPROFEN 800800 MG PO
[2020-04-28 21:26] LABS: URINE BILIRUBIN NEGATIVE (Negative); URINE BLOOD TRACE (Negative); URINE CLARITY CLEAR; URINE COLOR YELLOW; URINE GLUCOSE-RANDOM NEGATIVE (Negative); URINE KETONES NEGATIVE (Negative); URINE LEUKOCYTES-REFLEX NEGATIVE (Negative); URINE NITRITE-REFLEX NEGATIVE (Negative); URINE PROTEIN NEGATIVE (Negative); URINE SPECIFIC GRAVITY >= 1.030 (1.005-1.030); URINE UROBILINOGEN 0.2 E.U./dl (0.2-1.0)
[2020-04-28 21:32] LABS: ABSOLUTE BASOPHILS 0.1 thou/uL (0.0-0.2); ABSOLUTE EOSINOPHILS 0.1 thou/uL (0.0-0.7); ABSOLUTE LYMPHOCYTES 2.9 thou/uL (0.8-5.3); ABSOLUTE MONOCYTES 0.9 thou/uL (0.0-1.2); ABSOLUTE NEUTROPHILS 11.1 thou/uL (1.6-8.1); BASOPHILS 0.6 %; EOSINOPHILS 0.7 %; HEMATOCRIT 38.3 % (37.0-47.0); HEMOGLOBIN 12.7 gm/dL (12.0-15.0); LYMPHOCYTES 19.2 %; MCHC 33.1 g/dL (28.0-37.0); MCV 84.5 fL (80.0-100.0); MPV 7.6 fl. (7.2-11.1); NUCLEATED RBCS 0 /100WBC; PLATELET COUNT* 451 thou/uL (150-400); POLYS 73.5 %; RBC 4.53 mil/uL (4.20-5.00); RDW-CV 14.5 % (10.5-14.5); WBC 15.1 thou/uL (4.0-11.0)
[2020-04-28 21:41] LABS: CALCIUM 8.8 mg/dL (8.5-10.1); CREATININE 0.9 mg/dL (0.6-1.3); POTASSIUM 3.5 mmol/L (3.5-5.1)
[2020-04-28] MEDS ORDERED: ZOFRAN ODT4 MG PO (23:24)
[2020-04-28] MEDS ORDERED: PERCOCET 7.5-31 EAC1 PO (23:24)
[2020-04-28 23:30] VITALS: BP 166/89
[2020-04-28] MEDS ORDERED: FLOMAX0.4 MG PO (23:43)
== END 2020-04-28 23:31 | disposition home or self-care (01) ==
LOC: M.ERS 20:56
PROVIDERS: Emergency Medicine
DX: N23 Unspecified renal colic (principal); K58.9 Irritable bowel syndrome, unspecified; F41.9 Anxiety disorder, unspecified; Z87.442 Personal history of urinary calculi; Z90.49 Acquired absence of other specified parts of digestive tract; Z91.041 Radiographic dye allergy status; Z88.8 Allergy status to other drugs, medicaments and biological substances

== ENCOUNTER 2020-08-07 17:10 | Emergency (ER) | payer OTHER ==
[~2020-08-07] VITALS: Ht 162.6 cm; Wt 113.4 kg
[~2020-08-07 17:10] MED LIST changes: +PERCOCET 7.5-31 EAC1 PO
[2020-08-07] MEDS ORDERED: NEURONTIN 300M300 M2 PO (17:23)
[2020-08-07] MEDS ORDERED: ZPAK PO (17:23)
[2020-08-07] MEDS ORDERED: NORCO 5-325 TA1 EAC2 PO (17:51)
[2020-08-07] MEDS ORDERED: MEDROLDOSEPACK PO (17:51)
[2020-08-07 18:01] VITALS: BP 155/96
== END 2020-08-07 18:02 | disposition home or self-care (01) ==
LOC: M.ERS 17:10
DX: M54.42 Lumbago with sciatica, left side (principal); Z91.041 Radiographic dye allergy status; Z88.8 Allergy status to other drugs, medicaments and biological substances; Z87.442 Personal history of urinary calculi

== ENCOUNTER 2020-08-10 14:37 | Emergency (ER) | payer OTHER ==
[~2020-08-10 14:37] MED LIST changes: +MEDROLDOSEPACK PO; +NEURONTIN 300M300 M2 PO; +NORCO 5-325 TA1 EAC2 PO; +ZPAK PO
== END 2020-08-10 14:54 | disposition home or self-care (01) ==
LOC: M.ERS 14:37
DX: Z53.21 Procedure and treatment not carried out due to patient leaving prior to being seen by health care provider (principal)